=== PATIENT | female | born 1995 | race Caucasian/White ===

== ENCOUNTER 2017-03-26 03:59 | Emergency (ER) | payer MEDICAID ==
[~2017-03-26] VITALS: Ht 162.6 cm; Wt 104.0 kg
[2017-03-26 04:09] VITALS: BP 128/66
== END 2017-03-26 07:38 | disposition left against medical advice (07) ==
LOC: ER 03:59
DX: M54.5 Low back pain (principal); R10.9 Unspecified abdominal pain; Z53.21 Procedure and treatment not carried out due to patient leaving prior to being seen by health care provider